=== PATIENT | female | born 1985 | race Two or more races ===

== ENCOUNTER 2021-12-25 03:30 | Emergency (ER) | payer MEDICAID ==
[~2021-12-25] VITALS: Ht 157.5 cm; Wt 65.0 kg
[2021-12-25] MEDS ORDERED: CYCLOBENZAPRINE 10MG TABLET PO ONE (04:15)
[2021-12-25] MEDS: KETOROLAC 60MG/2ML VIAL IM ONE ×2 (04:15→04:42)
[2021-12-25 06:28] LABS: BASOPHILS % 0.7 % (0.0-2.0); EOSINOPHILS % 5.1 % (0.0-5.0); HEMATOCRIT. 40.4 % (36.0-48.0); HEMOGLOBIN. 13.4 g/dL (12.0-16.0); LYMPHOCYTES % 34.1 % (20.0-50.0); MEAN CORPUSCULAR VOLUME 87.5 fL (81.0-99.0); MEAN PLATELET VOLUME 7.2 fl (7.4-10.4); MONOCYTES % 5.9 % (2.0-8.0); NEUTROPHILS % 54.2 % (40.0-76.0); PLATELET 290 x1000/uL (130-400); RED BLOOD CELL COUNT 4.62 mill/uL (4.2-5.4); RED CELL DISTRIBUTION WIDTH 13.4 % (11.6-14.6)
[2021-12-25 06:30] LABS: CHLORIDE 107 mEq/L (98-107)
[2021-12-25 06:34] LABS: PARTIAL THROMBOPLASTIN TIME 28.9 sec (23.4-31.0); PROTHROMBIN TIME 10.3 sec (9.6-11.0)
[2021-12-25 06:49] LABS: HCG SCREEN NEGATIVE
[2021-12-25] MEDS ORDERED: IOHEXOL-350 100 ML BOTTLE ONE (08:03)
[2021-12-25] MEDS ORDERED: GADOTERATE MEGLUMINE 5 MMOL/10 ML VIAL IV ONE (08:39)
[2021-12-25 11:05] VITALS: BP 107/73
== END 2021-12-25 11:16 | disposition short-term general hospital (02) ==
LOC: ER 03:30 → CANBEDREQ 12:07
DX: Q28.2 Arteriovenous malformation of cerebral vessels (principal); R51.9 Headache, unspecified; S00.511A Abrasion of lip, initial encounter; S00.512A Abrasion of oral cavity, initial encounter; Z20.822 Contact with and (suspected) exposure to COVID-19; V49.49XA Driver injured in collision with other motor vehicles in traffic accident, initial encounter; Y93.89 Activity, other specified; Y92.411 Interstate highway as the place of occurrence of the external cause
CPT/HCPCS: 36415; 70450; 70496; 70498; 70553; 72125; 80053; 84703; 85025; 85610; 85730; 86850; 86900; 86901; 87426; 99285; A9577; J1885; Q9967